=== PATIENT | female | born 1965 | race Caucasian/White ===

== ENCOUNTER 2019-06-30 16:18 | Emergency (ER) | payer OTHER, SELFPAY ==
[2019-06-30 16:19] VITALS: BP 162/79; PULSE 63; RESP 18; TEMP 37.1; O2SAT 100
--- NOTE | 2019-06-30 16:35 | ED.ALLEREA ---
HPI - Allergic Reaction General Chief complaint: Allergic Reaction Stated complaint: allergic reaction Time Seen by Provider: 06/30/19 16:28 Source: patient Mode of arrival: ambulatory Limitations: no limitations History of Present Illness HPI narrative: GENERAL: Well-appearing, well-nourished, and in no acute distress. Patient speaking in complete sentences. HEAD: Normocephalic, atraumatic. Swelling to upper lip. EYES: PERRLA and EOMI. ENT: Nares clear, no rhinorrhea or epistaxis. Mucous membranes moist. Oropharynx without tonsillar hypertrophy exudate or other lesions. Bilateral TMs pearly stevenson nonbulging. Airway is patent. Patient handling her own secretions without difficulty. NECK: Supple. No adenopathy or masses. No carotid bruits or JVD CHEST: Clear to auscultation. No respiratory distress. No wheezes rales or rhonchi HEART: Regular rate and rhythm. No murmur heard. Normal peripheral pulses. ABDOMEN: Soft, nontender, nondistended, normal active bowel sounds. EXTREMITIES: Normal range of motion. No edema. SKIN: Warm, dry, no rash or hives. NEURO: No focal deficits. Alert and oriented x3. PSYCH: Normal mood and affect. Related Data Home Medications Medication Instructions Recorded Confirmed metoprolol tartrate 06/30/19 Allergies Allergy/AdvReac Type Severity Reaction Status Date / Time Sulfa (Sulfonamide Allergy Unknown Nausea Verified 06/30/19 16:30 Antibiotics) Review of Systems Review of Systems: Narrative: CONSTITUTIONAL: Denies fever, chills, or sweats. EYES: Denies visual changes, redness, or discharge. ENT: Denies rhinorrhea, congestion, sore throat, or otalgia. CARDIOVASCULAR: Denies chest pain, palpitations, or edema. RESPIRATORY: Denies cough or dyspnea. GASTROINTESTINAL: Denies abdominal pain, nausea, vomiting, or diarrhea. GENITOURINARY: Denies dysuria or hematuria. SKIN: Reports swelling lips. Reports hives. Denies rash or itching. MUSCULOSKELETAL: Denies back pain, joint pain, or myalgia. NEUROLOGIC: Denies headache, numbness, dizziness, or weakness. PSYCHIATRIC: Denies anxiety or depression. PMFSH Social History Social History Alcohol intake: never Gender identity (if verbalized by the patient): Female Exam Narrative: Exam Narrative: Patient presents with chief complaint of swelling to her upper lip. Patient states that for the past 2 weeks she has had intermittent hives for. Patient reports this morning she noticed swelling to her upper lip. Patient states that she took 2 Benadryl and her hives have resolved and the swelling has greatly improved however she became worried that she might have swelling of her throat so she came to the emergency department. Patient is not having difficulty swallowing at this time. Patient is handling her own secretions appropriately. Patient states that she is not sure what caused her symptoms. She denies no changes in soaps lotions, detergents, medications. Patient denies chest pain, nausea, vomiting, diarrhea, fever or shortness of breath. Course Vital Signs Vital signs: Vital Signs Temperature 98.7 F 06/30/19 16:19 Pulse Rate 63 06/30/19 16:19 Respiratory Rate 18 06/30/19 16:19 Blood Pressure 162/79 H 06/30/19 16:19 Pulse Oximetry 100 06/30/19 16:19 Temperature 98.7 F 06/30/19 16:19 Pulse Rate 63 06/30/19 16:19 Respiratory Rate 18 06/30/19 16:19 Blood Pressure 162/79 H 06/30/19 16:19 Pulse Oximetry 100 06/30/19 16:19 MDM - Allergic Reaction MDM Narrative Medical decision making narrative: Patient notes great improvement. Patient no longer feels a tickling or itching sensation in her throat. Patient's airway is still patent. Patient swelling to her upper lip has decreased significantly is only mild. Patient states that she is ready to go home at this time and does not feel the need to have any other intervention. Patient will be placed on Pepcid and Medrol Dosepak. Patient instructed to
[2019-06-30] MEDS: methylPREDNISolone SOD SUCC 125 MG VIAL IM (16:36)
[2019-06-30 17:49] VITALS: BP 119/76; PULSE 66; RESP 16; O2SAT 95
== END 2019-06-30 17:51 | disposition home or self-care (01) ==
PROVIDERS: Emergency Provider Emergency Medicine; PCP Emergency Medicine
DX: T78.40XA Allergy, unspecified, initial encounter (principal)
CPT/HCPCS: 96372; 99283; J2930

== ENCOUNTER 2019-09-16 08:11 | Outpatient (CLI) | payer OTHER, SELFPAY ==
[2019-09-16 08:45] LABS: Alanine Aminotransferase 22 U/L (4-35); Albumin Level 4.5 g/dL (3.5-5.1); Alkaline Phosphatase 79 U/L (38-126); Aspartate Amino Transferase 29 U/L (14-36); Bilirubin,Total 0.4 mg/dL (0.2-1.3); Blood Urea Nitrogen 22 mg/dL (7-17); Calcium 9.2 mg/dL (8.4-10.2); Carbon Dioxide 27 mmol/L (22-30); Chloride 104 mmol/L (98-107); Cholesterol 220 mg/dL (0-200); Estimated Glomerular Filt Rate > 60; Glucose 98 mg/dL (65-105); HDL Direct 56 mg/dL; Potassium 4.5 mmol/L (3.4-5.0); Sodium 137 mmol/L (137-145); Triglycerides 137 mg/dL (<150)
[2019-09-16 08:56] LABS: LDL Cholesterol Direct 130 mg/dL
== END 2019-09-16 08:12 | disposition home or self-care (01) ==
PROVIDERS: PCP Emergency Medicine; Visit Provider Emergency Medicine
DX: E78.5 Hyperlipidemia, unspecified (principal)
CPT/HCPCS: 36415; 80053; 80061

== ENCOUNTER 2020-06-05 15:43 | Outpatient (CLI) | payer OTHER, SELFPAY | END 2020-06-05 15:44 | disposition home or self-care (01) | LOC: ANHLAB 15:45 | PROVIDERS: PCP Emergency Medicine; Visit Provider Emergency Medicine | DX: N30.00 Acute cystitis without hematuria (principal) | CPT/HCPCS: 87086; 87088 ==

== ENCOUNTER 2020-06-23 07:24 | Outpatient (CLI) | payer OTHER, SELFPAY ==
[2020-06-23 07:58] LABS: Alanine Aminotransferase 23 U/L (4-35); Albumin Level 4.3 g/dL (3.5-5.1); Alkaline Phosphatase 76 U/L (38-126); Anion Gap 5 mmol/L (8-16); Aspartate Amino Transferase 27 U/L (14-36); Bilirubin,Total 0.4 mg/dL (0.2-1.3); Blood Urea Nitrogen 22 mg/dL (7-17); Calcium 9.1 mg/dL (8.4-10.2); Carbon Dioxide 31 mmol/L (22-30); Chloride 103 mmol/L (98-107); Cholesterol 228 mg/dL (0-200); Estimated Glomerular Filt Rate 58; Glucose 107 mg/dL (65-105); HDL Direct 56 mg/dL; Potassium 4.8 mmol/L (3.4-5.0); Sodium 139 mmol/L (137-145); Triglycerides 147 mg/dL (<150)
[2020-06-23 08:09] LABS: LDL Cholesterol Direct 133 mg/dL
[2020-06-23 08:27] LABS: Thyroid Stimulating Hormone 0.794 uIU/mL (0.465-4.680)
== END 2020-06-23 07:25 | disposition home or self-care (01) ==
LOC: ANHLAB 07:26
PROVIDERS: PCP Emergency Medicine; Visit Provider Emergency Medicine
DX: E78.5 Hyperlipidemia, unspecified (principal); R53.83 Other fatigue
CPT/HCPCS: 36415; 80053; 80061; 84443

== ENCOUNTER 2020-06-27 15:37 | Outpatient (CLI) | payer OTHER, SELFPAY ==
[2020-06-27 17:08] LABS: Hemoglobin A1C 4.9 % (<5.7)
== END 2020-06-27 15:38 | disposition home or self-care (01) ==
PROVIDERS: PCP Emergency Medicine; Visit Provider Emergency Medicine
DX: R73.09 Other abnormal glucose (principal)
CPT/HCPCS: 36415; 83036

== ENCOUNTER 2020-08-31 11:38 | Outpatient (CLI) | payer OTHER, SELFPAY ==
--- NOTE | 2020-08-31 11:50 | ECG_ITS ---
Measurements Intervals [place] Rate: 57 P: 29 ND: 233 QRS: 37 QRSD: 87 T: 32 QT: 409 QTc: 401 Interpretive Statements SINUS BRADYCARDIA WITH FIRST DEGREE AV BLOCK ABNORMAL ECG Electronically Signed On 08-31-2020 12:18:21 CDT by Gilberto Rosario D.O.
== END 2020-08-31 11:39 | disposition home or self-care (01) ==
PROVIDERS: PCP Emergency Medicine; Visit Provider Podiatrist Foot & Ankle Surgery
DX: R03.0 Elevated blood-pressure reading, without diagnosis of hypertension (principal); I44.0 Atrioventricular block, first degree
CPT/HCPCS: 93005

== ENCOUNTER 2020-11-22 11:48 | Emergency (ER) | payer OTHER, SELFPAY ==
--- NOTE | ~2020-11-22 | XR_ITS ---
XR chest 1V portable DATE: 11/22/2020 16:51 INDICATION: Weakness. Covid-positive. TECHNIQUE: Portable upright AP chest on 11/22/2020 at 1648 hours COMPARISON: None FINDINGS: Normal heart size. No hilar or mediastinal enlargement. There are patchy bilateral pulmonary infiltrates, most prominent in the right upper lobe suggesting b ilateral multifocal pneumonia. Right upper lobe mass lesion is not excluded. Continued radiographic f ollow-up is recommended. Normal heart size. No hilar or mediastinal enlargement. No pleural effusion or pneumothorax. IMPRESSION: Patchy bilateral pulmonary infiltrates suggesting multifocal pneumonia, suspicious for Co vid pneumonia. There is some consolidation or mass density in the right upper lobe. Continued follow-up is recommend ed to exclude possible lung mass lesion Reviewed, dictated and finalized at location A. IMPRESSION: Patchy bilateral pulmonary infiltrates suggesting multifocal pneumo alexa, suspicious for Covid pneumonia. There is some consolidation or mass density in the right upper lobe. Continued follow-up is recommended to exclude possible lung mass lesion
[2020-11-22 12:29] VITALS: BP 104/62; PULSE 72; RESP 16; TEMP 36.8; O2SAT 100
--- NOTE | 2020-11-22 16:42 | ECG_ITS ---
Measurements Intervals [place] Rate: 64 P: 63 ME: 229 QRS: 48 QRSD: 90 T: 57 QT: 412 QTc: 428 Interpretive Statements SINUS RHYTHM WITH FIRST DEGREE AV BLOCK BASELINE ARTIFACT- I, II, III, AVR, AVF, V2-V6 ABNORMAL ECG Electronically Signed On 11-22-2020 20:00:33 CDT by Gilberto Rosario D.O.
[2020-11-22 17:01] LABS: Basophils Percent Auto 0.3 % (0.2-1.2); Hematocrit 44.8 % (37.0-47.0); Hemoglobin 14.4 g/dL (12.0-15.0); Immature Granulocyte Absolute 0.09 K/mm3 (0.00-0.031); Immature Granulocyte Percent A 1.3 % (0-0.5); Lymphocytes Absolute Auto 1.32 K/mm3 (0.9-3.2); Lymphocytes Percent Auto 18.7 % (18.3-44.2); Mean Corpuscular HGB Conc 32.1 g/dl (32-36); Mean Platelet Volume 10.7 fl (7.4-10.4); Monocytes Absolute Auto 0.7 K/mm3 (0.1-0.6); Monocytes Percent Auto 9.5 % (2.6-8.5); Neutrophils Percent Auto 70.2 % (45.5-73.1); Platelet Count Result 350 k/mm3 (150-375); Red Blood Count 5.15 M/mm3 (4.2-5.4); Red Cell Distribution Width 12.4 % (11.5-14.5); White Blood Count 7.1 K/mm3 (4.5-10.0)
[2020-11-22] MEDS: ONDANSETRON INJ 4 MG/2 ML VIAL IV PUSH (17:02)
[2020-11-22] MEDS: SODIUM CHLORIDE 0.9% IV 1,000 ML 999 ML IV CONT (17:02)
[2020-11-22 17:06] LABS: Add Urine Microscopic? YES; Appearance Urine Clear (Clear); Bacteria Urine Trace /hpf; Bilirubin Urine Negative (Negative); Blood Urine Negative (Negative); Color Urine Amber (Yellow); Glucose Urine UA Negative (Negative); Ketones Urine 1+ mg/dL (Negative); Leukocyte Esterase Ur Negative LEU/UL (Negative); Mucus Urine Heavy /lpf; Nitrate Urine Negative (Negative); Protein Urine 1+ mg/dL (Negative); RBC Urine 0-2 /hpf (0-2); Specific Grav Ur 1.024 (1.001-1.035); Squamous Epithelial Cell Urine Rare /hpf (Few); Urobilinogen Urine Negative mg/dL (<2.0)
[2020-11-22 17:12] LABS: Alanine Aminotransferase 23 U/L (4-35); Albumin Level 4.4 g/dL (3.5-5.1); Alkaline Phosphatase 97 U/L (38-126); Anion Gap 12 mmol/L (8-16); Aspartate Amino Transferase 25 U/L (14-36); Bilirubin,Total 0.8 mg/dL (0.2-1.3); Blood Urea Nitrogen 14 mg/dL (7-17); Calcium 9.7 mg/dL (8.4-10.2); Carbon Dioxide 23 mmol/L (22-30); Chloride 104 mmol/L (98-107); Estimated CRCL calculation 75 ml/min; Estimated Glomerular Filt Rate > 60; Glucose 89 mg/dL (65-110); Lipase 379 U/L (23-300); Potassium 3.9 mmol/L (3.4-5.0); Sodium 139 mmol/L (137-145)
[2020-11-22 17:29] VITALS: BP 121/59; PULSE 64; RESP 13; O2SAT 95
--- NOTE | 2020-11-22 17:29 | ED.WEAKNESS ---
HPI - Weakness General Chief complaint: Weakness Stated complaint: weakness 2 weeks post covid Time Seen by Provider: 11/22/20 16:04 Source: patient and RN notes reviewed Mode of arrival: ambulatory Limitations: no limitations History of Present Illness HPI Narrative: This is a 55 year old female who presents for evaluation of generalized weakness. She states she was diagnosed with Covid on 11/05/20. Her symptoms were cough, nausea, vomiting, diarrhea, fever and chills. and fatigue. Her fever resolved 2 weeks ago . She reports her vomiting resolved 2 weeks ago. She reports her diarrhea resolved 2 days ago . She came to ER today because she does not want to eat or drink , and she feels weak. She told her sister she could not get out of bed so her sister told her to come to ER. She denies nausea, chest pain or abdominal pain. She states she can not eat but she denies nausea, vomiting or abdominal pain. Related Data Allergies Allergy/AdvReac Type Severity Reaction Status Date / Time Sulfa (Sulfonamide Allergy Unknown Nausea Verified 11/22/20 16:00 Antibiotics) Review of Systems Review of Systems: All systems reviewed & are unremarkable except as noted in HPI and below [facility] Past Medical History Medical History (Updated 11/23/20 @ 00:00 by Hugo Lynch) HTN (hypertension) Insomnia Social History Social History Alcohol intake: never Gender identity (if verbalized by the patient): Female Exam Const: General: no acute distress and alert Orientation/consciousness: patient oriented x3 Eyes: EOM: EOMs intact bilaterally Chest: Chest palpation & inspection: normal inspection of the chest Resp: Effort & Inspection: normal respiratory effort Auscultation: crackles bilateral at the base Cardio: Rate: regular rate Rhythm: regular rhythm GI: GI Palp: Yes Soft to palpation, No Tenderness to palpation present (GI) and No Guarding due to palpation present (GI) Auscultation: normal bowel sounds Skin: General skin exam: normal color Rashes: no rashes Neuro: General: patient oriented x3, moves all extremities and CN's II-XI intact bilaterally Psych: Mental Status: mental status grossly normal Affect: normal affect Course Reevaluation(s) Reevaluation #1: Patient was able to ambulate to bathroom without difficulty or assistance. She is not hypoxic either . I discussed labs unremarkable and she has pneumonia but no requiring oxygen. She was able to tolerate PO and she has not abdominal tenderness or pain to suggest pancreatitis. Date: 11/22/20 Time: 19:15 Vital Signs Vital signs: Vital Signs Temperature 98.2 F 11/22/20 12:29 Pulse Rate 72 11/22/20 12:29 Respiratory Rate 16 11/22/20 12:29 Blood Pressure 104/62 11/22/20 12:29 Pulse Oximetry 100 11/22/20 12:29 Temperature 98.2 F 11/22/20 12:29 Pulse Rate 76 11/22/20 19:48 Respiratory Rate 18 11/22/20 19:48 Blood Pressure 118/65 11/22/20 19:10 Pulse Oximetry 99 11/22/20 19:48 MDM - Weakness Lab Data Attestation: I reviewed the patient's lab results. Result diagrams: 11/22/20 16:47 11/22/20 16:47 Labs: Lab Results 11/22/20 11/22/20 11/22/20 Range/Units 16:47 16:47 16:47 WBC 7.1 (4.5-10.0) K/mm3 RBC 5.15 (4.2-5.4) M/mm3 Hgb 14.4 (12.0-15.0) g/dL Hct 44.8 (37.0-47.0) % MCV 87.0 (80-100) fl MCH 28.0 (26-34) pg MCHC 32.1 (32-36) g/dl RDW 12.4 (11.5-14.5) % Plt Count 350 (150-375) k/mm3 MPV 10.7 H (7.4-10.4) fl Immature Gran % (Auto) 1.3 H (0-0.5) % Neut % (Auto) 70.2 (45.5-73.1) % Lymph % (Auto) 18.7 (18.3-44.2) % [place] % (Auto) 9.5 H (2.6-8.5) % Eos % (Auto) 0.0 (0-4.4) % Baso % (Auto) 0.3 (0.2-1.2) % Lymph # (Auto) 1.32 (0.9-3.2) K/mm3 [place] # (Auto) 0.7 H (0.1-0.6) K/mm3 Eos # (Auto) 0.0 (0-0.3) K/mm3 Baso # (Auto)
[2020-11-22 19:10] VITALS: BP 118/65; PULSE 68; RESP 19; O2SAT 97
--- NOTE | 2020-11-22 19:14 | PC.NURSE ---
Report received and care of pt assumed at this time.
[2020-11-22 19:48] VITALS: PULSE 76; RESP 18; O2SAT 99
== END 2020-11-22 19:50 | disposition home or self-care (01) ==
PROVIDERS: Emergency Provider General Practice; PCP Emergency Medicine
DX: U07.1 COVID-19 (principal); J12.82 Pneumonia due to coronavirus disease 2019; R53.83 Other fatigue; I10 Essential (primary) hypertension; I44.0 Atrioventricular block, first degree; R91.8 Other nonspecific abnormal finding of lung field
CPT/HCPCS: 36415; 71045; 80053; 81001; 81025; 83690; 85025; 93005; 96361; 96374; 99284; J2405; J7030

== ENCOUNTER 2021-01-07 09:37 | Outpatient (CLI) | payer OTHER, SELFPAY ==
[2021-01-07 10:11] LABS: Alanine Aminotransferase 26 U/L (4-35); Albumin Level 4.8 g/dL (3.5-5.1); Alkaline Phosphatase 86 U/L (38-126); Anion Gap 9 mmol/L (8-16); Aspartate Amino Transferase 26 U/L (14-36); Basophils Absolute Auto 0.1 K/mm3 (0.0-0.1); Basophils Percent Auto 0.8 % (0.2-1.2); Bilirubin,Total 0.4 mg/dL (0.2-1.3); Blood Urea Nitrogen 17 mg/dL (7-17); Calcium 9.6 mg/dL (8.4-10.2); Carbon Dioxide 27 mmol/L (22-30); Chloride 104 mmol/L (98-107); Cholesterol 261 mg/dL (0-200); Eosinophils Absolute Auto 0.1 K/mm3 (0-0.3); Estimated Glomerular Filt Rate > 60; Glucose 105 mg/dL (65-110); HDL Direct 60 mg/dL; Hematocrit 46.7 % (37.0-47.0); Hemoglobin 15.2 g/dL (12.0-15.0); Immature Granulocyte Absolute 0.02 K/mm3 (0.00-0.031); Immature Granulocyte Percent A 0.3 % (0-0.5); Lymphocytes Absolute Auto 1.53 K/mm3 (0.9-3.2); Lymphocytes Percent Auto 25.3 % (18.3-44.2); Mean Corpuscular HGB Conc 32.5 g/dl (32-36); Mean Platelet Volume 10.4 fl (7.4-10.4); Monocytes Absolute Auto 0.5 K/mm3 (0.1-0.6); Monocytes Percent Auto 8.9 % (2.6-8.5); Neutrophils Absolute Auto 3.9 K/mm3 (1.3-6.7); Neutrophils Percent Auto 63.7 % (45.5-73.1); Platelet Count Result 212 k/mm3 (150-375); Potassium 4.6 mmol/L (3.4-5.0); Red Blood Count 5.25 M/mm3 (4.2-5.4); Sodium 140 mmol/L (137-145); Triglycerides 186 mg/dL (<150); White Blood Count 6.1 K/mm3 (4.5-10.0)
[2021-01-07 10:22] LABS: LDL Cholesterol Direct 153 mg/dL
== END 2021-01-07 09:38 | disposition home or self-care (01) ==
PROVIDERS: PCP Emergency Medicine; Visit Provider Emergency Medicine
DX: I10 Essential (primary) hypertension (principal); R53.83 Other fatigue
CPT/HCPCS: 36415; 80053; 80061; 84443; 85025

== ENCOUNTER 2021-03-21 15:50 | Outpatient (CLI) | payer OTHER, SELFPAY ==
--- NOTE | ~2021-03-21 | XR_ITS ---
EXAMINATION: XR chest 2V DATE: 03/21/2021 16:13 INDICATION: Other nonspecific abnormal finding of lung field. Right upper lobe mass. TECHNIQUE: Frontal and lateral views of the chest were obtained. COMPARISON: Chest single view 11/22/2020 FINDINGS: The chest demonstrates clear lungs without pneumonia, pleural effusion, or pneumothorax. Th e heart size is normal. IMPRESSION: 1. No acute cardiopulmonary disease. Reviewed, dictated and finalized at location A. ISTRY FACULTY MEMBER
[2021-03-21 16:43] LABS: Add Urine Microscopic? YES; Appearance Urine Cloudy (Clear); Bacteria Urine Trace /hpf; Bilirubin Urine Negative (Negative); Blood Urine Negative (Negative); Color Urine Amber (Yellow); Glucose Urine UA Negative (Negative); Ketones Urine Negative (Negative); Leukocyte Esterase Ur Trace LEU/UL (NEGATIVE); Mucus Urine Heavy /lpf; Nitrate Urine Negative (Negative); Protein Urine 1+ mg/dL (Negative); Squamous Epithelial Cell Urine Few /hpf (Few); Urobilinogen Urine Negative mg/dL (<2.0); WBC Urine 0-3 /hpf (0-3)
[2021-03-21 16:54] LABS: Specific Grav Ur 1.035 (1.001-1.035)
== END 2021-03-21 15:51 | disposition home or self-care (01) ==
PROVIDERS: PCP Emergency Medicine; Visit Provider Internal Medicine Cardiovascular Disease
DX: N34.2 Other urethritis (principal); R91.8 Other nonspecific abnormal finding of lung field
CPT/HCPCS: 71046; 81001

== ENCOUNTER 2021-04-22 08:29 | Outpatient (CLI) | payer OTHER, SELFPAY ==
--- NOTE | 2021-04-22 08:51 | EST_ITS ---
Patient Info Name: Temitope Sinhg Age: 56 years : 1965 Gender: Female Ht: 62 in Wt: 170 lbs BSA: 1.87 m2 HR: 62 bpm BP: 133 / 82 mmHg Heart Rhythm: Sinus Rhythm Exam Date: 04/22/2021 9:01 AM Exam Location: [facility] Stress Patient Status: Outpatient Admit Date: 04/22/2021 Staff Ordering Physician: Gilberto Rosario DO Attending Provider: Gilberto Rosario DO Exercise Technologist: Isabella Mcclelland CT Exercise Physician: Gilberto Rosario DO Exam Type: CA stress test treadmill Study Info Indications R07.9 - Chest pain, unspecified An exercise stress test was performed. Summary 1. 1. Negative Salo exercise stress test for ischemic ST changes by ECG criteria. 2. 2. Reduced functional capacity, achieving 8 METs of workload. 3. 3. Hypertensive response to exercise. 4. 4. Appropriate HR response to exercise. 5. 5. Appropriate HR recovery at 1 minute post exercise. 6. 6. No imaging with stress testing. 7. 7. Patient informed of the above results. Protocol: Salo Stress ECG Details Stage: REST Duration (min): 1 min : 1 sec Speed (mph): 0.0 Grade (%): 0 HR (bpm): 62 SBP (mmHg): 133 DBP (mmHg): 82 METS: --- Stage: REST Duration (min): 11 min : 12 sec Speed (mph): 0.0 Grade (%): 0 HR (bpm): 65 SBP (mmHg): 133 DBP (mmHg): 82 METS: --- Stage: STAGE 1 Duration (min): 1 min : 0 sec Speed (mph): 1.7 Grade (%): 10 HR (bpm): 93 SBP (mmHg): 133 DBP (mmHg): 82 METS: --- Stage: STAGE 1 Duration (min): 2 min : 0 sec Speed (mph): 1.7 Grade (%): 10 HR (bpm): 100 SBP (mmHg): 133 DBP (mmHg): 82 METS: --- Stage: STAGE 1 Duration (min): 3 min : 0 sec Speed (mph): 1.7 Grade (%): 10 HR (bpm): 95 SBP (mmHg): 170 DBP (mmHg): 75 METS: --- Stage: STAGE 2 Duration (min): 1 min : 0 sec Speed (mph): 2.5 Grade (%): 12 HR (bpm): 107 SBP (mmHg): 170 DBP (mmHg): 75 METS: --- Stage: STAGE 2 Duration (min): 2 min : 0 sec Speed (mph): 2.5 Grade (%): 12 HR (bpm): 116 SBP (mmHg): 209 DBP (mmHg): 79 METS: --- Stage: STAGE 2 Duration (min): 3 min : 0 sec Speed (mph): 2.5 Grade (%): 12 HR (bpm): 124 SBP (mmHg): 209 DBP (mmHg): 79 METS: --- Stage: STAGE 3 Duration (min): 0 min : 53 sec Speed (mph): 3.4 Grade (%): 14 HR (bpm): 144 SBP (mmHg): 248 DBP (mmHg): 105 METS: --- Stage: RECOVERY Duration (min): 0 min : 6 sec Speed (mph): 1.5 Grade (%): 0 HR (bpm): 145 SBP (mmHg): 248 DBP (mmHg): 105 METS: --- Stage: RECOVERY Duration (min): 1 min : 6 sec Speed (mph): 0.0 Grade (%): 0 HR (bpm): 96 SBP (mmHg): 248 DBP (mmHg): 105 METS: --- Stage: RECOVERY Duration (min): 2 min : 6 sec Speed (mph): 0.0 Grade (%): 0 HR (bpm): 76 SBP (mmHg): 248 DBP (mmHg): 105 METS:
== END 2021-04-22 08:30 | disposition home or self-care (01) ==
PROVIDERS: PCP Emergency Medicine; Visit Provider Internal Medicine Cardiovascular Disease
DX: R07.9 Chest pain, unspecified (principal)
CPT/HCPCS: 93017

== ENCOUNTER 2022-01-03 07:39 | Outpatient (CLI) | payer OTHER, SELFPAY ==
[2022-01-03 08:51] LABS: Alanine Aminotransferase 23 U/L (6-35); Albumin Level 4.2 g/dL (3.5-5.1); Alkaline Phosphatase 72 U/L (38-126); Anion Gap 9 mmol/L (8-16); Aspartate Amino Transferase 21 U/L (14-36); Bilirubin,Total 0.4 mg/dL (0.2-1.3); Blood Urea Nitrogen 16 mg/dL (7-17); Carbon Dioxide 28 mmol/L (22-30); Chloride 103 mmol/L (98-107); Cholesterol 203 mg/dL (0-200); Estimated Glomerular Filt Rate > 60; Glucose 97 mg/dL (65-110); HDL Direct 58 mg/dL; Potassium 4.3 mmol/L (3.4-5.0); Sodium 140 mmol/L (137-145); Triglycerides 77 mg/dL (<150)
[2022-01-03 09:06] LABS: LDL Cholesterol Direct 114 mg/dL
== END 2022-01-03 07:40 | disposition home or self-care (01) ==
LOC: ANHLAB 07:41
PROVIDERS: PCP Emergency Medicine; Visit Provider Emergency Medicine
DX: I10 Essential (primary) hypertension (principal)
CPT/HCPCS: 36415; 80053; 80061

== ENCOUNTER 2022-01-27 08:36 | Outpatient (CLI) | payer OTHER, SELFPAY ==
--- NOTE | 2022-01-27 08:43 | EST_ITS ---
Patient Info Name: Temitope Singh Age: 56 years : 1965 Gender: Female Ht: 62 in Wt: 185 lbs BSA: 1.95 m2 Exam Date: 01/27/2022 9:05 AM Exam Location: [facility] Stress Patient Status: Outpatient Admit Date: 01/27/2022 Staff Ordering Physician: Rene Frye MD Attending Provider: Rene Frye MD Exercise Technologist: Cuca Kelly RDCS Exercise Physician: Gilberto Rosario DO Exam Type: CA stress test treadmill Study Info Indications I34.1 - Nonrheumatic mitral (valve) prolapse An exercise stress test was performed. Summary 1. 1. Negative Salo exercise stress test for ischemic ST changes by ECG criteria. 2. 2. Good functional capacity, achieving 8.9 METs of workload. 3. 3. Appropriate HR response to exercise. 4. 4. Appropriate HR recovery at 1 minute post exercise. 5. 5. No imaging with stress testing. Protocol: Salo Stress ECG Details Stage: REST Duration (min): 1 min : 25 sec Speed (mph): 0.0 Grade (%): 0 HR (bpm): 59 SBP (mmHg): 134 DBP (mmHg): 76 METS: --- Stage: REST Duration (min): 8 min : 30 sec Speed (mph): 0.0 Grade (%): 0 HR (bpm): 64 SBP (mmHg): 134 DBP (mmHg): 76 METS: --- Stage: STAGE 1 Duration (min): 1 min : 0 sec Speed (mph): 1.7 Grade (%): 10 HR (bpm): 98 SBP (mmHg): 134 DBP (mmHg): 76 METS: --- Stage: STAGE 1 Duration (min): 2 min : 0 sec Speed (mph): 1.7 Grade (%): 10 HR (bpm): 101 SBP (mmHg): 134 DBP (mmHg): 76 METS: --- Stage: STAGE 1 Duration (min): 3 min : 0 sec Speed (mph): 1.7 Grade (%): 10 HR (bpm): 98 SBP (mmHg): 176 DBP (mmHg): 79 METS: --- Stage: STAGE 2 Duration (min): 1 min : 0 sec Speed (mph): 2.5 Grade (%): 12 HR (bpm): 109 SBP (mmHg): 176 DBP (mmHg): 79 METS: --- Stage: STAGE 2 Duration (min): 2 min : 0 sec Speed (mph): 2.5 Grade (%): 12 HR (bpm): 115 SBP (mmHg): 118 DBP (mmHg): 75 METS: --- Stage: STAGE 2 Duration (min): 3 min : 0 sec Speed (mph): 2.5 Grade (%): 12 HR (bpm): 119 SBP (mmHg): 181 DBP (mmHg): 87 METS: --- Stage: STAGE 3 Duration (min): 1 min : 0 sec Speed (mph): 3.4 Grade (%): 14 HR (bpm): 140 SBP (mmHg): 144 DBP (mmHg): 84 METS: --- Stage: STAGE 3 Duration (min): 1 min : 0 sec Speed (mph): 3.4 Grade (%): 14 HR (bpm): 140 SBP (mmHg): 144 DBP (mmHg): 84 METS: --- Stage: RECOVERY Duration (min): 0 min : 59 sec Speed (mph): 0.0 Grade (%): 0 HR (bpm): 95 SBP (mmHg): 144 DBP (mmHg): 84 METS: --- Stage: RECOVERY Duration (min): 1 min : 59 sec Speed (mph): 0.0 Grade (%): 0 HR (bpm): 82 SBP (mmHg): 156 DBP (mmHg): 77 METS: --- Stage: RECOVERY Duration (min): 2 min : 59 sec Speed (mph): 0.0 Grade (%): 0 HR (bpm
== END 2022-01-27 08:37 | disposition home or self-care (01) ==
PROVIDERS: PCP Emergency Medicine; Visit Provider Emergency Medicine
DX: I34.1 Nonrheumatic mitral (valve) prolapse (principal)
CPT/HCPCS: 93017

== ENCOUNTER 2022-03-13 16:04 | Outpatient (CLI) | payer OTHER, SELFPAY ==
--- NOTE | ~2022-03-13 | MM_ITS ---
EXAMINATION: MM screening ron BI w chapito HISTORY: Screening mammogram TECHNIQUE: Craniocaudal and mediolateral oblique 3-D tomosynthesis images were obtained and synthetic 2-D images were generated. CAD analysis was submitted and interpreted. COMPARISON: No prior mammogram is available for comparison at this institution. BREAST PARENCHYMAL COMPOSITION: There are scattered areas of fibroglandular density. FINDINGS: RIGHT BREAST: There is focal asymmetry in the anterior third of the upper outer quadrant of the breas t. LEFT BREAST: No suspicious mass, calcification, or architectural distortion are identified to suggest malignancy. IMPRESSION: 1. Right breast focal asymmetry. 2. Additional mammographic views and possible breast ultrasound are recommended. BI-RADS Category 0: Incomplete: Needs additional imaging evaluation. Reviewed, dictated and finalized at location A. GUARD IMPRESSION: 1. Right breast focal asymmetry. 2. Additional mammographic views and possible breast ultrasound are recommended . BI-RADS Category 0: Incomplete: Needs additional imaging evaluation.
== END 2022-03-13 16:05 | disposition home or self-care (01) ==
PROVIDERS: PCP Emergency Medicine; Visit Provider Emergency Medicine
DX: Z12.31 Encounter for screening mammogram for malignant neoplasm of breast (principal); R92.8 Other abnormal and inconclusive findings on diagnostic imaging of breast
CPT/HCPCS: 77063; 77067

== ENCOUNTER 2022-04-03 12:01 | Outpatient (CLI) | payer OTHER, SELFPAY ==
--- NOTE | ~2022-04-03 | MMUS_ITS ---
EXAMINATION: MM diagnostic ron RT w chapito, US breast RT limited HISTORY: Right breast focal mammographic asymmetry reported on 03/13/2022 screening mammogram TECHNIQUE: Additional 3-D tomosynthesis images of the right breast were performed and synthetic 2-D i mages were generated. CAD analysis was submitted and interpreted. High resolution limited right breas t ultrasound from 8:00 to 12:00 was performed. COMPARISON: 03/13/2022 bilateral screening mammogram FINDINGS: MAMMOGRAPHIC FINDINGS: No suspicious mass or architectural distortion, malignant calcification, skin thickening or retractio n is detected. ULTRASOUND: Targeted ultrasound from 8:00 to 12:00 reveals no suspicious mass, suspicious shadowing, cyst or othe r significant sonographic finding. IMPRESSION: 1. No mammographic evidence of malignancy 2. Routine annual mammographic screening is recommended BI-RADS Category 1: Negative Reviewed, dictated and finalized at location A. T TECHNICIAN/CONTROL ROOM OPERATOR IMPRESSION: 1. No mammographic evidence of malignancy 2. Routine annual mammographic screening is recommended BI-RADS Category 1: Negative
== END 2022-04-03 12:02 | disposition home or self-care (01) ==
PROVIDERS: PCP Emergency Medicine; Visit Provider Emergency Medicine
DX: R92.8 Other abnormal and inconclusive findings on diagnostic imaging of breast (principal)
CPT/HCPCS: 76642; 77061; 77065; G0279

== ENCOUNTER 2023-01-03 08:20 | Outpatient (CLI) | payer OTHER, SELFPAY ==
[2023-01-03 08:56] LABS: Alanine Aminotransferase 27 U/L (6-35); Albumin Level 4.2 g/dL (3.5-5.1); Alkaline Phosphatase 81 U/L (38-126); Anion Gap 7 mmol/L (8-16); Aspartate Amino Transferase 25 U/L (14-36); Bilirubin,Total 0.5 mg/dL (0.2-1.3); Blood Urea Nitrogen 21 mg/dL (7-17); Calcium 8.6 mg/dL (8.4-10.2); Carbon Dioxide 25 mmol/L (22-30); Chloride 107 mmol/L (98-107); Estimated Glomerular Filt Rate > 60; Glucose 105 mg/dL (65-110); Potassium 4.4 mmol/L (3.4-5.0); Sodium 139 mmol/L (137-145)
[2023-01-07 15:46] LABS: Vitamin D 1,25 (OH)2 Total 39 pg/mL (18-72); Vitamin D2 1,25 (OH)2 <8 pg/mL; Vitamin D3 1,25 (OH)2 39 pg/mL
== END 2023-01-03 08:21 | disposition home or self-care (01) ==
LOC: ANHLAB 08:21
PROVIDERS: PCP Emergency Medicine; Visit Provider Emergency Medicine
DX: E78.5 Hyperlipidemia, unspecified (principal); E55.9 Vitamin D deficiency, unspecified
CPT/HCPCS: 36415; 80053; 82652

== ENCOUNTER 2023-07-03 08:26 | Outpatient (CLI) | payer OTHER, SELFPAY ==
[2023-07-03 09:03] LABS: Alanine Aminotransferase 31 U/L (6-35); Albumin Level 4.3 g/dL (3.5-5.1); Alkaline Phosphatase 72 U/L (38-126); Anion Gap 7 mmol/L (4-12); Aspartate Amino Transferase 31 U/L (14-36); Bilirubin,Total 0.6 mg/dL (0.2-1.3); Blood Urea Nitrogen 20 mg/dL (7-17); Calcium 9.5 mg/dL (8.4-10.2); Carbon Dioxide 27 mmol/L (22-30); Chloride 104 mmol/L (98-107); Cholesterol 203 mg/dL (0-200); Estimated Glomerular Filt Rate > 60; Glucose 107 mg/dL (65-110); HDL Direct 47 mg/dL; Potassium 4.6 mmol/L (3.4-5.0); Sodium 138 mmol/L (137-145); Triglycerides 161 mg/dL (<150)
[2023-07-03 09:14] LABS: LDL Cholesterol Direct 124 mg/dL
[2023-07-03 09:34] LABS: Vitamin D 25 Hydroxy 39.8 ng/mL
== END 2023-07-03 08:27 | disposition home or self-care (01) ==
LOC: ANHLAB 08:28
PROVIDERS: PCP Emergency Medicine; Visit Provider Emergency Medicine
DX: E55.9 Vitamin D deficiency, unspecified (principal); Z13.220 Encounter for screening for lipoid disorders; I10 Essential (primary) hypertension
CPT/HCPCS: 36415; 80053; 80061; 82306

== ENCOUNTER 2024-01-16 07:53 | Outpatient (CLI) | payer OTHER, SELFPAY ==
[2024-01-16 08:39] LABS: Hematocrit 48.7 % (37.0-47.0); Hemoglobin 15.7 g/dL (12.0-15.0); Mean Corpuscular HGB Conc 32.2 g/dl (32-36); Mean Corpuscular Hemoglobin 28.9 pg (26-34); Mean Corpuscular Volume 89.7 fl (80-100); Mean Platelet Volume 10.3 fl (7.4-10.4); Platelet Count Result 236 k/mm3 (150-375); Red Blood Count 5.43 M/mm3 (4.2-5.4); Red Cell Distribution Width 12.3 % (11.5-14.5); White Blood Count 6.4 K/mm3 (4.5-10.0)
[2024-01-16 08:48] LABS: Alanine Aminotransferase 26 U/L (6-35); Albumin Level 4.4 g/dL (3.5-5.1); Alkaline Phosphatase 83 U/L (38-126); Anion Gap 9 mmol/L (4-12); Aspartate Amino Transferase 27 U/L (14-36); Bilirubin,Total 0.5 mg/dL (0.2-1.3); Blood Urea Nitrogen 14 mg/dL (7-17); Calcium 9.2 mg/dL (8.4-10.2); Carbon Dioxide 27 mmol/L (22-30); Chloride 102 mmol/L (98-107); Cholesterol 218 mg/dL (0-200); Estimated Glomerular Filt Rate > 60; Glucose 103 mg/dL (65-110); HDL Direct 52 mg/dL; Potassium 4.3 mmol/L (3.4-5.0); Sodium 138 mmol/L (137-145); Triglycerides 175 mg/dL (<150)
[2024-01-16 08:59] LABS: LDL Cholesterol Direct 114 mg/dL
[2024-01-16 09:52] LABS: Vitamin D 25 Hydroxy 36.7 ng/mL
== END 2024-01-16 07:54 | disposition home or self-care (01) ==
LOC: ANHLAB 07:55
PROVIDERS: PCP Emergency Medicine; Visit Provider Emergency Medicine
DX: R53.83 Other fatigue (principal); E78.5 Hyperlipidemia, unspecified; E03.9 Hypothyroidism, unspecified; E55.9 Vitamin D deficiency, unspecified
CPT/HCPCS: 36415; 80053; 80061; 82306; 84443; 85027

== ENCOUNTER 2024-05-10 16:10 | Outpatient (CLI) | payer OTHER, SELFPAY ==
--- NOTE | ~2024-05-10 | MM_ITS ---
EXAMINATION: MM screening ron BI w [place] HISTORY: Screening TECHNIQUE: Craniocaudal and mediolateral oblique 3-D tomosynthesis images were obtained and synthetic 2-D images were generated. CAD analysis was submitted and interpreted. COMPARISON: Comparison to multiple prior studies sequentially, with oldest reviewed study dated 11/2021. BREAST PARENCHYMAL COMPOSITION: Not dense: There are scattered areas of fibroglandular density. FINDINGS: There is no evidence of suspicious mass, calcification, or architectural distortion to sugg est malignancy in either breast. There has been no suspicious interval change. IMPRESSION: 1. No mammographic evidence of malignancy. 2. Recommend routine screening mammography in one year. BI-RADS Category 1: Negative Reviewed, dictated and finalized at location B. UITER COORDINATOR
--- OUTSIDE RECORDS SUMMARY | 2024-05-10 16:13 | XMS_ITS | Encounter Summary ---
Author Organization [facility] Address 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
--- OUTSIDE RECORDS SUMMARY | 2024-05-10 16:13 | XMS_ITS | Encounter Summary ---
Author Organization [facility] Address [address] [place] [address] Care Team Providers Care Activity Director Name Role Phone Rene Frye MD Primary Care Provider [phone] Encounter Details Date Type Department Care Team (Latest Contact Info) Description 07/03/2007 Outpatient Historical HIS [facility] Kevan Avila MD [address] [facility] [address] [place] [address] Other Screening Mammogram Social History Tobacco Use Types Packs/Day Years Used Date Smoking Tobacco: Never Assessed Comments Unknown Sex and Gender Information Value Date Recorded Sex Assigned at Not on file Legal Sex Female 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 [facility] ? [address] ?[place], [place] ??[id number] ?Admit Date: 07/03/2007 ?TEMITOPE SINGH F ?Sex: F ?Admit Prov: KEVAN OCHOA ? Date: 1965 ?Primary Care Prov: PCP , NONE ?CMRN: [id number] ?Room: MDB-A ?SSN: [id number] ? IMAGING SERVICES ?Ordering Prov: KEVAN OCHOA ? Accession Number: [id number] ?Interpretation ? BILATERAL FULL FIELD DIGITAL SCREENING MAMMOGRAM WITH CAD. ? Date: 07/03/07 ? History: Routine Screening. ? Technique: Full field digital craniocaudal and mediolateral oblique ? projections of both breasts were obtained. Computer aided diagnosis was ? performed. ? Comparison: 05/2006, 02/2005 ? Breast Parenchymal Composition: Scattered fibroglandular densities. ? Findings: No suspicious mass, suspicious microcalcifications, or ? architectural distortion in either breast is identified. Since the prior ? study, there has been no significant interval change. The computer aided ? diagnosis detects no significant abnormality. ? Overall Assessment: ??BI-RADS category 1: Negative. ? Recommendation: Annual mammography is recommended. ? Assessment BIRADS: ??1-Negative ? Recommendation: ??Normal interval follow-up ? Dictated by: ??MARY ANNE RASHID ? Electronically signed by: ??MARY ANNE RASHID ??07/05/2007 12:00 ? Transcribed: ??07/05/2007 10:26 ?[facility] Procedure Note Mary Anne Rashid - 07/05/2007 [id number] [place], [place] [address] Admit Date: 07/03/2007 TEMITOPE SINGH Sex: F Admit Prov: KEVAN OCHOA Date: 1965 Primary Care Prov: PCP , NONE CMRN: [id number] Room: [facility] SSN: [id number] IMAGING SERVICES Ordering Prov: KEVAN OCHOA Torsten Interpretation BILATERAL FULL FIELD DIGITAL SCREENING MAMMOGRAM WITH CAD. Date: 07/03/07 History: Routine Screening. Technique: Full field digital craniocaudal and mediolateral oblique projections of both breasts were obtained. Computer aided diagnosiswas performed. Comparison: 05/2006, 02/2005 Breast Parenchymal Composition: Scattered fibroglandular densities. Findings: No suspicious mass, suspicious microcalcifications, or architectural distortion in either breast is identified. Since theprior study, there has been no significant interval change. The computeraided diagnosis detects no significant abnormality. Overall Assessment: BI-RADS category 1: Negative. Recommendation: Annual mammography is recommended. Assessment BIRADS: 1-Negative Recommendation: Normal interval follow-up Dictated by: MARY ANNE RASHID Electronically signed by: MARY ANNE RASHID 07/05/2007 12:00 Transcribed: 07/05/2007 10:26 AMK us Kevan Ochoa MD MAMMO ORDERABLES Final Result documented in this encounter Visit Diagnoses Diagnosis Other screening mammogram documented in this encounter Care Teams Activity Director Relationship Specialty Start Date End Date Rene Frye MD PCP - General Internal Medicine 03/12/11 documented as of this encounter
--- OUTSIDE RECORDS SUMMARY | 2024-05-10 16:14 | XMS_ITS | Referral Summary ---
Author Organization [facility] Address [address] [place] [address] Care Team Providers Care Nanotechnician Name Role Phone Rene Frye MD Primary Care Provide r Allergies Active Allergy Reactions Criticality Noted Date Comments Meperidine Vomiting Low 02/04/2021 Sulfa Vomiting Low 02/04/2021 Social History Tobacco Use Types Packs/Day Years Used Date Smoking Tobacco: Never Assessed Personal Safety Answer Date Recorded Getting School Help Needed Not on file 06/19 Comments Unknown Sex and Gender Information Value Date Recorded Sex Assigned at Not on file Legal Sex Female 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
--- OUTSIDE RECORDS SUMMARY | 2024-05-10 16:14 | XMS_ITS | Encounter Summary ---
Author Organization [facility] Address 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
--- OUTSIDE RECORDS SUMMARY | 2024-05-10 16:14 | XMS_ITS | Referral Summary ---
Author Organization [facility] Address [address] [place] [address] Care Team Providers Care Product Introduction Manager Name Role Phone Rene Frye MD Primary Care Provider [phone] Source Comments [facility],non-owned Affiliates and Associated Physician Practices is amultiple site organization consisting of ambulatory clinics and hospital sitesin [place], [place], [place] and [place]. This disclosure is being madepursuant to the Care Everywhere program and may not contain all information available regarding this patient. Last updated 17.[facility] Maintenance Assistant Allergies Active Allergy Reactions Criticality Noted Date Comments Meperidine Nausea and/or Vomiting 09/10/2022 Sulfa Drugs Rash Medium 11/07/2018 Medications * Be aware that medications may not be up to date on this document. Alwaysverify current medications with the patient. Medication Sig Dispensed Refills Start Date End Date Status METOPROLOL SUCCINATE PO Active Sertraline HCl (ZOLOFT PO) Active oxyCODONE-acetaminoph en (Percocet) 10-325 MG tabletIndications:Rib pain on left side,Closed fracture of multiple ribs of left side, initial encounter Take 1 (one) tablet by mouth every 6 hours as needed for Pain 12 tablet 09/10/2022 Active ketorolac (Toradol) 10 MG tablet Take 1 (one) tablet by mouth every 6 hours as needed for Pain 12 tablet 09/10/2022 Active Social History Tobacco Use Types Packs/Day Years Used Date Smoking Tobacco: Never Smokeless Tobacco: Never AUDIT-C Answer Date Recorded Q1: How often do you have a drink containing alc ohol? Never 09/10/2022 Average Number of Drinks Not on file 023 Frequency of Binge Drinking Not on file 0610/2022 Sex and Gender Information Value Date Recorded Sex Assigned at Not on file Gender Identity Not on file Sexual Orientation Not on file Last Filed Vital Signs Vital Sign Reading Time Taken Comments Blood Pressure 131/90 09/10/2022 10:59 AM CDT Pulse 77 09/10/2022 9:08 AM CDT Temperature 36.8 ??C (98.2 ??F) 09/10/2022 9:08 AM CD T Respiratory Rate 21 09/10/2022 9:08 AM CDT Oxygen Saturation 97% 09/10/2022 11:09 AM CDT Inhaled Oxygen Concentration - - Weight 86.2 kg (190 lb) 09/10/2022 9:08 AM CDT Height 157.5 cm (5' 2 ) 09/10/2022 9:08 AM CDT Body Mass Index 34.75 09/10/2022 9:08 AM CDT Plan of Treatment Not on file Care Teams Product Introduction Manager Relationship Specialty Start Date End Date Rene Frye MD [address] [place] [address] [address] [place] [address] PCP - General Internal Medicine 11/07/18
--- OUTSIDE RECORDS SUMMARY | 2024-05-10 16:14 | XMS_ITS | Clinical Summary ---
Author Organization [facility] Address [address] [place] [address] Care Team Providers Care Shake Splitter Name Role Phone Rene Frye MD Primary Care Provider [phone] Source Comments [facility],non-owned Affiliates and Associated Physician Practices is amultiple site organization consisting of ambulatory clinics and hospital sitesin [place], [place], [place]. This disclosure is being madepursuant to the Care Everywhere program and may not contain all information available regarding this patient. Last updated 17.[facility] Allergies Active Allergy Reactions Criticality Noted Date [...] 09/10/2022 9:08 AM CDT Plan of Treatment Health Maintenance Due Date Last Done Comments COLOGUARD (AGES 45-75) - COL ON CA SCREENING 1965 COLON MONITORING 1965 COLONOSCOPY - COLON CA SCREENING 1965 CT COLONOGRAPHY - COLON CA SCREENING 1965 Colorectal Cancer Screening 1965 FIT - COLON CA SCREENING 1965 FLEX SIG - COLON CA SCREENING 1965 LIPID TESTING 1965 MAMMOGRAM 1965 PAP SMEAR 1965 HIV SCREENING 1980 HEPATITIS C SCREENING 03/06/1983 DTAP/TDAP/TD VACCINES (1 - Tdap) 1984 HEPATITIS B VACCINE (1 of 3 - 19+ 3-dose series) 1984 PNEUMOCOCCAL VACCINE 50+ (1 of 1 - PCV) 2015 ZOSTER VACCINE (1 of 2) 2015 SCREENING FOR DIABETES 11/07/2018 COVID-19 VACCINE ( - 2023-2 5 season) 2023 INFLUENZA VACCINE (#1) 2023 DEPRESSION SCREENING 04/06/2024 HIB VACCINE Aged Out No longer eligi ble based on patient's age to complete this topic HPV VACCINE Aged Out No longer eligi ble based on patient's age to complete this topic MENINGOCOCCAL (Group B) VACCINE Aged Out No longer eligible based on patient's age to complete this topic MENINGOCOCCAL VACCINE Aged Out No ginger arturo eligible based on patient's age to complete this topic PNEUMOCOCCAL VACCINE Aged Out No long er eligible based on patient's age to complete this topic Care Teams Shake Splitter Relationship Specialty Start Date End Date Rene Frye MD [address] [place] [address] [address] [place] [address] PCP - General Internal Medicine 11/07/18
--- OUTSIDE RECORDS SUMMARY | 2024-05-10 16:14 | XMS_ITS | Clinical Summary ---
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
--- OUTSIDE RECORDS SUMMARY | 2024-05-10 16:14 | XMS_ITS | Patient Health Summary ---
Author Organization [facility] Address [address] [place] [address] Care Team Providers Care Boring Machine Operator Double End Name Role Phone Rene Frye MD Primary Care Provider [phone] Note from [facility],non-owned Affiliates and Associated Physician Practices is amultiple site organization consisting of ambulatory clinics and hospital sitesin [place], [place], [place] and [place]. This disclosure is being madepursuant to the Care Everywhere program and may not contain all information available regarding this patient. Last updated 17.[facility] Allergies * Meperidine(Nausea and/or Vomiting) * Sulfa Drugs(Rash) -Medium Criticality Medications * Be aware that medications may not be up to date on this document. Alwaysverify current medications with the patient. * METOPROLOL SUCCINATE PO * Sertraline HCl (ZOLOFT PO) * oxyCODONE-acetaminophen (Percocet) 10-325 MG tablet(Started 09/10/2022) Take 1 (one) tablet by mouth every 6 hours as needed for Pain * ketorolac (Toradol) 10 MG tablet(Started 09/10/2022) Take 1 (one) tablet by mouth every 6 hours as needed for Pain Social History Tobacco Use Types Packs/Day Years Used Date Smoking Tobacco: Never Smokeless Tobacco: Never AUDIT-C Answer Date Recorded Q1: How often do you have a drink containing alc ohol? Never 09/10/2022 Average Number of Drinks Not on file 023 Frequency of Binge Drinking Not on file 10/2022 Sex and Gender Information Value Date Recorded [...] Mass Index 34.75 09/10/2022 9:08 AM CDT Procedures * XR RIBS LEFT 2VW W PA CHEST(Performed 09/10/2022) Performed for Rib pain on left side Results * XR RIBS LEFT 2VW W PA CHEST (09/10/2022 9:41 AM CDT) Anatomical Region Laterality Modality Chest Radiographic Arlin ging 09/10/2022 9:51 AM CDT Impressions 09/10/2022 9:53 AM CDT Impression: No pneumothorax. Minimally displaced left eighth rib fracture. > Interpreting Provider: Andres Will MD on 09/10/2022 9:53 AM Narrative 09/10/2022 9:53 AM CDT PROCEDURE: ??XR RIBS LEFT 2VW W PA CHEST, DATE/TIME OF EXAM: ??09/10/2022 9:42 AM, LOCATION ??[facility] INDICATION: R07.81: Pleurodynia ADDITIONAL CLINICAL INFORMATION: Ordering Provider Reason For Exam: Technologist Note: Additional: ??Slipped and fell at work. Hitting left side on machine at work. Back pain left-sided rib pain COMPARISON: None. Findings: The heart size is normal. The pulmonary vessels are normal. The lungs are clear. No lobar consolidation or pleural effusion. No pneumothorax. No paraspinal soft tissue swelling.No hilar enlargement or major airway displacement. No pneumothorax. Atherosclerotic aorta. Left RIBS: Left eighth rib fracture with about 1.5 mm of distraction. Likely left ninth rib fracture posteriorly as well Procedure Note Andres Will MD - 09/10/2022 PROCEDURE: XR RIBS LEFT 2VW W PA CHEST, DATE/TIME OF EXAM: 39:42 AM, LOCATION [facility] INDICATION: R07.81: Pleurodynia ADDITIONAL CLINICAL INFORMATION: Ordering Provider Reason For Exam: Technologist Note: Additional: Slipped and fell at work. Hitting left side on machine at work. Back pain left-sided rib pain COMPARISON: None. Findings: The heart size is normal. The pulmonary vessels are normal. The lungsare clear. No lobar consolidation or pleural effusion. No pneumothorax. No paraspinal soft tissue swelling.No hilar enlargement or major airway displacement. No pneumothorax. Atherosclerotic aorta. Left RIBS: Left eighth rib fracture with about 1.5 mm of distraction. Likely left ninth rib fracture posteriorly as well Impression: No pneumothorax. Minimally displaced left eighth rib fracture. > Interpreting Provider: Andres Will MD on 09/10/2022 9:53 AM Willam Longoria MD DIAGNOSTIC IMAGING O [facility] Care Teams Boring Machine Operator Double End Relationship Specialty Start Date End Date Rene Frye MD [address] [place] [address] [address] [place] [address] PCP - General Internal Medicine 11/07/18
--- OUTSIDE RECORDS SUMMARY | 2024-05-10 16:14 | XMS_ITS | Encounter Summary ---
Author Organization [facility] Address [address] [place] [address] Care Team Providers Care Pediatric Occupational Therapist Name Role Phone Rene Frye MD Primary Care Provider Encounter Details Date Type Department Care Team (Latest Contact Info) Description 03/04/2005 Outpatient Historical HIS [facility] Steiner, Kevan Sarmiento MD [address] [place] [address] SCREENING MAMM-MAILG NEOPL NEC (Primary Dx) Social History Tobacco Use Types Packs/Day Years Used Date Smoking Tobacco: Never Assessed Comments Unknown Sex and Gender Information Value Date Recorded Sex Assigned at Not on file 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
--- OUTSIDE RECORDS SUMMARY | 2024-05-10 16:14 | XMS_ITS | Clinical Summary ---
Author Organization [facility] Address [address] [place] [address] Phone Care Team Providers Care Presentation Specialist Name Role Phone Rene Frye MD Primary Care Provider Family History Medical History Relation Name Comments Breast Cancer Paternal Aunt 1 3 Breast Cancer Paternal Aunt 2 1 age unknown Breast Cancer Paternal Aunt 3 2 age unknown Ovarian Cancer Neg Hx Relation Name Status Comments Paternal Aunt 1 3 Alive Paternal Aunt 2 1 Paternal Aunt 3 2 Social History Tobacco Use Types Packs/Day Years Used Date Smoking Tobacco: Never Assessed Comments Unknown Sex and Gender Information Value Date Recorded Sex Assigned at Not on file 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 Gender Identity Not on file Sexual Orientation Not on file Occupation Industry Job Start Date Job End Date Not on file Not on file Not on file Not on file Plan of Treatment Health Maintenance Due Date Last Done Comments DTAP/TDAP/TD VACCINES (1 - Tdap) 1984 HEPATITIS B VACCINES (1 of 3 - 19+ 3-dose series) 1984 CERVICAL CANCER SCREENING 1995 COLORECTAL SCREENING 2010 Colorectal Cancer Screening 2010 FIT-DNA Q 3 years 2010 FIT/FOBT Q 1 year 2010 Flex Sig/CT Colonography Q 5 years 2010 ZOSTER VACCINE (1 of 2) 2015 BREAST CANCER SCREENING 04/12/2015 04/12/19 15, 03/12/2011, 07/03/2007 INFLUENZA VACCINE (#1) 2023 PNEUMOCOCCAL VACCINE 0-64 YEARS Aged Out No longer eligible b ased on patient's age to complete this topic Procedures Procedure Name Priority Date/Time Associated Diagnosis Comments MAMMO SCREEN BILAT W OR WO CAD Routine 04/12/2014 3:20 PM TRACK VEHICLE REPAIRER Other screening mammogram from Last 3 Months or Most Recently Relevant to Health Maintenance Results * MAMMO DIGITAL SCREEN BILAT (04/12/2014 3:20 PM TRACK VEHICLE REPAIRER) Anatomical Region Laterality Modality Breast Bilateral Mammography Narrative 04/12/2014 4:28 PM TRACK VEHICLE REPAIRER Bilateral digital screening mammogram with computer assisted diagnosis History: ??Annual screening exam. Findings: ??A bilateral screening mammogram was performed. Comparison is made to : 03/12/2011, 07/03/2007 ??There are scattered fibroglandular densities. ??No new masses, ??suspicious calcifications, or areas of asymmetry or distortion are identified. ??CAD was utilized. Impression: ??Negative screening mammogram. Recommendation: ??Routine annual follow-up Overall Assessment: ??Birads Category 1: ??Negative Procedure Note Michele Gunn MD - 04/12/2014 Bilateral digital screening mammogram with computer assisted diagnosis History: Annual screening exam. Findings: A bilateral screening mammogram was performed. Comparison ismade to : 03/12/2011, 07/03/2007 There are scattered fibroglandulardensities. No new masses, suspicious calcifications, or areas ofasymmetry or distortion are identified. CAD was utilized. Impression: Negative screening mammogram. Recommendation: Routine annual follow-up Overall Assessment: Birads Category 1: Negative Kevan Steiner MD MAMMO ORDERABLES Final Result from Last 3 Months or Most Recently Relevant to Health Maintenance Insurance Care Teams Presentation Specialist Relationship Specialty Start Date End Date Rene Frye MD PCP - General Internal Medicine 03/12/11
== END 2024-05-10 16:11 | disposition home or self-care (01) ==
LOC: ANHIMG 16:12
PROVIDERS: PCP Emergency Medicine; Visit Provider Emergency Medicine
DX: Z12.31 Encounter for screening mammogram for malignant neoplasm of breast (principal)
CPT/HCPCS: 77063; 77067

== ENCOUNTER 2025-01-09 16:30 | Outpatient (CLI) | payer OTHER, SELFPAY ==
[2025-01-09 18:00] LABS: Alanine Aminotransferase 25 U/L (6-35); Albumin Level 4.5 g/dL (3.5-5.1); Alkaline Phosphatase 77 U/L (38-126); Anion Gap 9 mmol/L (4-12); Aspartate Amino Transferase 35 U/L (14-36); Bilirubin,Total 0.7 mg/dL (0.2-1.3); Blood Urea Nitrogen 17 mg/dL (7-17); Calcium 9.0 mg/dL (8.4-10.2); Carbon Dioxide 26 mmol/L (22-30); Chloride 101 mmol/L (98-107); Estimated Glomerular Filt Rate 59; Glucose 90 mg/dL (65-110); Potassium 4.4 mmol/L (3.4-5.0); Sodium 136 mmol/L (137-145); Total Protein 8.5 g/dL (6.3-8.2)
== END 2025-01-09 16:31 | disposition home or self-care (01) ==
PROVIDERS: PCP Emergency Medicine; Visit Provider Emergency Medicine
DX: E78.5 Hyperlipidemia, unspecified (principal); E55.9 Vitamin D deficiency, unspecified; R10.9 Unspecified abdominal pain
CPT/HCPCS: 36415; 80053; 82306; 83013